=== PATIENT | male | born 1965 | race African-American/Black ===

== ENCOUNTER 2017-05-24 16:14 | Inpatient (IN) | payer OTHER ==
[~2017-05-24] VITALS: Ht 175.3 cm; Wt 96.2 kg
--- NOTE | ~2017-05-24 | EKG ---
[address] [address] ELECTROCARDIOGRAM REPORT Name: GIOVANNI ESCOBAR Room #: 310-P ADM IN M.R.#: [id number] Admission: 05/25/17 Attend Phys: Porfirio Putnam MD Discharge: Date of : 65 Report #: [id number] THIS REPORT FOR: //name// [facility] ED Test Date: 2017-05-24 Test Time: 17:48:57 Pat Name: GIOVANNI ESCOBAR Department: Room: 310 Gender: M Test Baker: MORENA : 1965 Requested By: Paulo Domingo Order Number: [id number] MD: Catrachito Sinclair Measurements Intervals [place] Rate: 80 P: 73 HI: 143 QRS: 11 QRSD: 97 T: QT: 360 QTc: 416 Interpretive Statements Sinus tachycardia Paired ventricular premature complexes Borderline T wave abnormalities Electronically Signed On 05-25-2017 13:15:18 CDT by Catrachito Sinclair [email or web address] <ELECTRONICALLY SIGNED> By: Catrachito Sinclair MD 05/25/17 1315 1748 1748 MD ANGELA Mahoney
--- NOTE | ~2017-05-24 | S ---
[facility] [place] [address] SURGICAL PATH RPT PROCEDURE Name: GIOVANNI TUCKER Room #: 310-P [facility] IN M.R.#: [id number] Admission: 05/25/17 Date of : 65 Discharge: 05/28/17 Report #: [id number] Path Case #: [id number] PATHOLOGY REPORT COLLECTION DATE: 05/27/2017 RECEIVED DATE: 05/27/2017 SUBMITTING PHYS: Dr. Adali Hines OTHER PHYS: Dr. Porfirio Putnam SPECIMEN(S) RECEIVED: A.Bx of gastrum B.Polyp at z-line of distal esophagus * * * * * * * * * * * * FINAL DIAGNOSIS: A. Gastric mucosa, antrum, endoscopic biopsy: - Mild chronic active gastritis. - Negative for intestinal metaplasia or atrophy. - Negative for Helicobacter pylori. B. Polyp, at Z-line of distal esophagus, endoscopic biopsy: - Hyperplastic fundic-type gastric mucosa, compatible with a hyperplastic polyp. - No definite intestinal metaplasia or dysplasia present. COMMENT: Helicobacter pylori immunohistochemical stain performed on block A1 - negative. An intensive search for Helicobacter pylori-like organisms is negative. Absence of such organisms does not entirely exclude the possibility and may be due to sampling or prior treatment of the same. Other possible etiologies may include chemical gastritis, autoimmune gastritis, gastritis associated with inflammatory bowel disease. Please correlate with clinical, endoscopic, and microbiological studies if clinically indicated. Co-review: Part B only co-reviewed by Dr. Keara Rosales. (IUV/db; 05/31/2017) PATHOLOGIST: Sandra Hernandez M.D. REPORT ELECTRONICALLY SIGNED BY: Sandra Hernandez M.D. DATE/TIME: 05/31/2017 16:03 * * * * * * * * * * * * GROSS PATHOLOGY: A. Received in formalin labeled "Giovanni Tucker, BX of gastrum/ antrum," are 2 segments of solis soft tissue measuring 0.9 x 0.2 x 0.2 cm in aggregate dimensions and ranging from 0.3 to 0.6 cm in maximum [facility] [place] [address] SURGICAL PATH RPT PROCEDURE Name: GIOVANNI TUCKER Room #: 310-P [facility] IN [facility].#: [id number] Admission: 05/25/17 Date of : 65 Discharge: 05/28/17 Report #: [id number] Path Case #: [id number] dimension. The specimen is submitted entirely in cassette A1. B. Received in formalin labeled "Giovanni Tucker, polyp at Z line of distal esophagus," is a segment of solis soft tissue measuring 0.4 x 0.2 x 0.2 cm in maximum dimension. The specimen is submitted entirely in cassette B1. (AMILCAR; 05/28/2017) CLINICAL HISTORY: N/V, abdominal pain INITIAL CPT CODE(S): A; 29714, 17039 B; 34510 Professional services performed by [facility] at [facility] [place] [address] Technical services performed by [facility] at [address] [place] [address], [address], [place] [address]. [facility] [address] [place] [address] PHONE: [phone] DIRECTOR: Hugo Bang M.D. * * * END OF REPORT * * *
[2017-05-24 16:14] VITALS: BP 124/78
[~2017-05-24 16:14] MED LIST: IBUPROFEN 800800 M1 PO; NORVASC5 MG PO; PERCOCET PO
[2017-05-24 16:39] LABS: HEMATOCRIT 33.4 % (42.0-52.0); HEMOGLOBIN 10.1 gm/dL (14.0-18.0); MCH 19.5 pg (26.0-34.0); MCHC 30.2 g/dL (28.0-37.0); MCV 64.3 fL (80.0-100.0); PLATELET COUNT 391 thou/uL (150-400); RBC 5.19 mil/uL (4.50-6.00); RDW 18.7 % (10.5-14.5)
[2017-05-24 16:50] LABS: MANUAL DIFF YES
[2017-05-24 16:53] LABS: ALBUMIN 3.2 g/dL (3.4-5.0); CALCIUM 8.9 mg/dL (8.5-10.1); CREATININE 1.6 mg/dL (0.7-1.3); TOTAL BILIRUBIN 0.9 mg/dL (<0.1-1.0); TOTAL PROTEIN 8.2 g/dL (6.4-8.2)
[2017-05-24 16:57] LABS: POTASSIUM 2.8 mmol/L (3.5-5.1)
[2017-05-24 17:12] LABS: ABSOLUTE NEUTROPHILS 7.3 thou/uL (1.4-8.2); HYPOCHROMASIA 2+; MICROCYTES 3+; TOTAL CELL COUNT 100
[2017-05-24 17:13] LABS: POIKILOCYTOSIS 1+; POLYCHROMASIA SLIGHT
[2017-05-24 17:52] VITALS: BP 103/48
[2017-05-24 18:11] VITALS: BP 140/96
[2017-05-24 18:14] LABS: TROPONIN-I < 0.04 ng/mL (<0.04-0.07)
[2017-05-24 18:15] VITALS: BP 124/80
[2017-05-24 18:58] LABS: % SATURATION 6 % (20-39); IRON 25 ug/dL (65-175); TIBC 428 ug/dL (250-450); UIBC 403 ug/dL
[2017-05-24 19:06] LABS: MAGNESIUM 2.3 mg/dL (1.8-2.4)
[2017-05-24 19:25] LABS: FERRITIN 12 ng/mL (26-388)
[2017-05-24 19:43] VITALS: BP 98/53
[2017-05-24 23:55] VITALS: BP 96/50
[2017-05-25 04:23] VITALS: BP 129/51
[2017-05-25 05:43] LABS: ALBUMIN 2.9 g/dL (3.4-5.0); CALCIUM 8.6 mg/dL (8.5-10.1); CREATININE 1.5 mg/dL (0.7-1.3); MAGNESIUM 2.3 mg/dL (1.8-2.4); POTASSIUM 3.3 mmol/L (3.5-5.1); TOTAL BILIRUBIN 0.9 mg/dL (<0.1-1.0); TOTAL PROTEIN 7.3 g/dL (6.4-8.2)
[2017-05-25 06:10] LABS: GLYCOHEMOGLOBIN (HGB A1C) 4.7 % (4.8-5.6)
[2017-05-25 08:21] VITALS: BP 110/68
[2017-05-25 08:24] LABS: URINE BILIRUBIN NEGATIVE (Negative); URINE BLOOD NEGATIVE (Negative); URINE COLOR YELLOW; URINE GLUCOSE-RANDOM* NEGATIVE (Negative); URINE KETONES NEGATIVE (Negative); URINE LEUKOCYTES-REFLEX TRACE (Negative); URINE PROTEIN (DIPSTICK) TRACE (Negative)
[2017-05-25 08:31] LABS: AMP/METHAMP POSITIVE (Negative); BARBITURATES Negative (Negative); BENZODIAZEPINES Negative (Negative); COCAINE Negative (Negative); METHADONE Negative (Negative); OPIATES Negative (Negative); PCP Negative (Negative); THC Negative (Negative)
[2017-05-25 09:05] LABS: HEMATOCRIT 28.3 % (42.0-52.0); HEMOGLOBIN 8.7 gm/dL (14.0-18.0); MCH 19.8 pg (26.0-34.0); MCHC 30.7 g/dL (28.0-37.0); MCV 64.6 fL (80.0-100.0); RBC 4.38 mil/uL (4.50-6.00); RDW 18.8 % (10.5-14.5); WBC 8.5 thou/uL (4.0-11.0)
[2017-05-25 15:46] VITALS: BP 123/74
[2017-05-25 20:00] VITALS: BP 123/84
[2017-05-26] VITALS: BP 101/68
[2017-05-26 04:00] VITALS: BP 120/70
[2017-05-26 08:00] VITALS: BP 60/47
[2017-05-26 09:04] LABS: HEMATOCRIT 25.1 % (42.0-52.0); HEMOGLOBIN 7.6 gm/dL (14.0-18.0); MCH 19.5 pg (26.0-34.0); MCHC 30.1 g/dL (28.0-37.0); PLATELET COUNT 327 thou/uL (150-400); RBC 3.86 mil/uL (4.50-6.00); RDW 18.1 % (10.5-14.5); WBC 5.9 thou/uL (4.0-11.0)
[2017-05-26 09:05] LABS: MANUAL DIFF YES
[2017-05-26 09:18] LABS: CALCIUM 8.4 mg/dL (8.5-10.1); CREATININE 1.3 mg/dL (0.7-1.3); POTASSIUM 3.6 mmol/L (3.5-5.1)
[2017-05-26 09:40] VITALS: BP 131/89
[2017-05-26 10:27] LABS: ABSOLUTE NEUTROPHILS 3.1 thou/uL (1.4-8.2); ANISOCYTOSIS 2+; HYPOCHROMASIA 1+; MICROCYTES 2+; PLATELET ESTIMATE NORMAL; TOTAL CELL COUNT 100
[2017-05-26 16:00] VITALS: BP 176/94
[2017-05-26 20:00] VITALS: BP 156/77
[2017-05-27 05:30] VITALS: BP 141/86
[2017-05-27 06:36] LABS: ABSOLUTE NEUTROPHILS 3.6 thou/uL (1.4-8.2); BASOPHILS 0.5 % (0.0-2.0); EOSINOPHILS 3.3 % (0.0-3.0); HEMATOCRIT 24.4 % (42.0-52.0); HEMOGLOBIN 7.5 gm/dL (14.0-18.0); LYMPHOCYTES 28.9 % (24.0-44.0); MCHC 30.9 g/dL (28.0-37.0); MCV 64.6 fL (80.0-100.0); MONOCYTES 11.1 % (1.0-8.0); PLATELET COUNT 364 thou/uL (150-400); POLYS 56.2 % (36.0-66.0); RBC 3.77 mil/uL (4.50-6.00); RDW 18.6 % (10.5-14.5); WBC 6.4 thou/uL (4.0-11.0)
[2017-05-27 06:42] LABS: MANUAL DIFF NO
[2017-05-27 06:47] LABS: CALCIUM 8.7 mg/dL (8.5-10.1); CREATININE 1.2 mg/dL (0.7-1.3); POTASSIUM 3.8 mmol/L (3.5-5.1)
[2017-05-27 08:23] VITALS: BP 124/72
[2017-05-27 09:10] LABS: ANISOCYTOSIS 2+; HYPOCHROMASIA 2+; MICROCYTES 3+; PLATELET ESTIMATE NORMAL; POLYCHROMASIA SLIGHT
[2017-05-27 16:40] VITALS: BP 140/91
[2017-05-27 20:02] VITALS: BP 149/81
[2017-05-28 03:53] VITALS: BP 138/78
[2017-05-28 05:46] LABS: ABSOLUTE NEUTROPHILS 6.3 thou/uL (1.4-8.2); BASOPHILS 0.8 % (0.0-2.0); EOSINOPHILS 0.1 % (0.0-3.0); HEMATOCRIT 25.1 % (42.0-52.0); HEMOGLOBIN 7.7 gm/dL (14.0-18.0); LYMPHOCYTES 25.7 % (24.0-44.0); MCH 19.9 pg (26.0-34.0); MCHC 30.6 g/dL (28.0-37.0); MCV 65.1 fL (80.0-100.0); MONOCYTES 10.6 % (1.0-8.0); PLATELET COUNT 414 thou/uL (150-400); POLYS 62.8 % (36.0-66.0); RBC 3.85 mil/uL (4.50-6.00); RDW 18.7 % (10.5-14.5)
[2017-05-28 05:47] LABS: MANUAL DIFF NO
[2017-05-28 06:02] LABS: CALCIUM 8.7 mg/dL (8.5-10.1); CREATININE 1.3 mg/dL (0.7-1.3); MAGNESIUM 2.1 mg/dL (1.8-2.4); POTASSIUM 4.1 mmol/L (3.5-5.1)
[2017-05-28 07:55] LABS: ANISOCYTOSIS 2+; MICROCYTES 3+
[2017-05-28 07:56] LABS: HYPOCHROMASIA 2+; POLYCHROMASIA OCCASIONAL
[2017-05-28 08:55] VITALS: BP 155/79
[2017-05-28] MEDS ORDERED: AUGMENTIN 875875 MG PO (10:50)
[2017-05-28] MEDS ORDERED: NICOTINE TRANSD14 M1 TRANSDERM (10:50)
[2017-05-28] MEDS ORDERED: PROTONIX40 M1 PO (10:50)
[2017-05-28] MEDS ORDERED: CARAFATE 11 GM/10 M1 PO (11:35)
[2017-05-28] MEDS ORDERED: IRON325 PO (13:47)
[2017-05-28 14:15] VITALS: BP 155/79
== END 2017-05-28 14:45 | disposition home or self-care (01) | DRG 445 ==
LOC: ER 16:14 → 3N 17:20 → EROBS 17:20 → 3N 18:01
PROVIDERS: Emergency Medicine; Internal Medicine; Nurse Practitioner
PROC: 0DB58ZX Excision of Esophagus, Via Natural or Artificial Opening Endoscopic, Diagnostic (ICD-10-PCS; principal; 2017-05-27)
PROC: 0DB68ZX Excision of Stomach, Via Natural or Artificial Opening Endoscopic, Diagnostic (ICD-10-PCS; principal; 2017-05-27)
DX: K80.20 Calculus of gallbladder without cholecystitis without obstruction (principal); E87.1 Hypo-osmolality and hyponatremia; N39.0 Urinary tract infection, site not specified; N17.9 Acute kidney failure, unspecified; K92.2 Gastrointestinal hemorrhage, unspecified; I10 Essential (primary) hypertension; E78.5 Hyperlipidemia, unspecified; F17.210 Nicotine dependence, cigarettes, uncomplicated; F15.90 Other stimulant use, unspecified, uncomplicated; I95.9 Hypotension, unspecified; E87.6 Hypokalemia; S00.12XA Contusion of left eyelid and periocular area, initial encounter; K29.70 Gastritis, unspecified, without bleeding; E66.9 Obesity, unspecified; K27.9 Peptic ulcer, site unspecified, unspecified as acute or chronic, without hemorrhage or perforation; E86.0 Dehydration; K21.9 Gastro-esophageal reflux disease without esophagitis; D50.9 Iron deficiency anemia, unspecified; B95.2 Enterococcus as the cause of diseases classified elsewhere; X58.XXXA Exposure to other specified factors, initial encounter; D64.9 Anemia, unspecified; Z79.899 Other long term (current) drug therapy; Z71.6 Tobacco abuse counseling; Y93.89 Activity, other specified; Y92.89 Other specified places as the place of occurrence of the external cause; Y99.8 Other external cause status; Z68.31 Body mass index [BMI] 31.0-31.9, adult
CPT/HCPCS: 10096; 62110; 62900; 70005